=== PATIENT | male | born 1945 | race Caucasian/White ===

== ENCOUNTER → 2016-04-26 | Outpatient (CLI) | payer OTHER, BC ==
[2016-04-26 11:16] LABS: BASOPHILS # (AUTO) 0.06 10*3/UL; BASOPHILS % (AUTO) 0.8 % (0-1); EOSINOPHILS % (AUTO) 1.8 % (0-8); HEMATOCRIT 44.5 % (42.0-52.0); HEMOGLOBIN 15.5 g/dL (14.0-18.0); IMM GRAN % (AUTO) 0.7 % (0-5); IMM GRAN# (AUTO) 0.05 10*3/UL; LYMPHOCYTES # (AUTO) 1.87 10*3/uL; LYMPHOCYTES % (AUTO) 24.4 % (10-50); MEAN CORPUSCULAR HEMOGLOBIN 32.3 PG (27-31); MEAN CORPUSCULAR HGB CONC 34.8 g/dL (33-37); MEAN PLATELET VOLUME 10.2 FL (7.4-12.2); MONOCYTES # (AUTO) 0.56 10*3/UL (0.3-0.8); MONOCYTES % (AUTO) 7.3 % (5-15); NEUTROPHILS # (AUTO) 4.99 10*3/UL; RDW COEFFICIENT OF VARIATION 13.8 % (11.5-14.5); WHITE BLOOD COUNT 7.67 10^3/uL (4.8-10.8)
[2016-04-26 11:26] LABS: PLATELET MORPHOLOGY COMMENT NORMAL MORPHOLOGY (NORM)
[2016-04-26 11:38] LABS: BILIRUBIN,TOTAL 0.9 mg/dL (0.3-1.2); BUN/CREATININE RATIO 12.72 (6-20); CALCIUM 9.5 mg/dL (8.7-10.7); CREATININE 1.1 mg/dL (0.70-1.50); POTASSIUM 3.9 meq/L (3.8-5.2); TOTAL PROTEIN 7.3 g/dL (6.1-8.0)
[2016-04-26 17:37] LABS: LDL CHOLESTEROL,CALCULATED 73.8 mg/dL
== END ==
LOC: LAB 10:57
PROVIDERS: ATTEND Internal Medicine
DX: J45.909 Unspecified asthma, uncomplicated (principal); R06.09 Other forms of dyspnea; N41.1 Chronic prostatitis; R35.1 Nocturia; K21.9 Gastro-esophageal reflux disease without esophagitis; Z12.5 Encounter for screening for malignant neoplasm of prostate
CPT/HCPCS: 36415; 80053; 80061; 84443; 85025; 99214; G0103; G0463

== ENCOUNTER → 2016-10-05 | Outpatient (CLI) | payer OTHER, BC ==
--- NOTE | 2016-10-05 14:42 | EKG ---
[address] [address] Measurements Intervals [place] Rate: 50 P: 44 WA: 145 QRS: -12 QRSD: 85 T: 45 QT: 427 QTc: 400 Interpretive Statements SINUS BRADYCARDIA No previous ECG available for comparison Electronically Signed On 10-06-16 07:50:04 MDT by Rick García MD [email or web address]
[2016-10-05 15:38] LABS: HEMATOCRIT 42.3 % (42.0-52.0); HEMOGLOBIN 14.4 g/dL (14.0-18.0); RED BLOOD COUNT 4.53 10^6/uL (4.70-6.10)
[2016-10-05 15:39] LABS: BASOPHILS # (AUTO) 0.05 10*3/UL; BASOPHILS % (AUTO) 0.7 % (0-1); EOSINOPHILS # (AUTO) 0.18 10*3/UL; EOSINOPHILS % (AUTO) 2.5 % (0-8); LYMPHOCYTES # (AUTO) 1.32 10*3/uL; MEAN CORPUSCULAR HEMOGLOBIN 31.8 PG (27-31); MEAN CORPUSCULAR VOLUME 93.4 FL (80-90); MONOCYTES # (AUTO) 0.63 10*3/UL (0.3-0.8); MONOCYTES % (AUTO) 8.9 % (5-15); NEUTROPHILS # (AUTO) 4.84 10*3/UL; NEUTROPHILS % (AUTO) 68.5 % (50-80); PLATELET MORPHOLOGY COMMENT NORMAL MORPHOLOGY (NORM); RBC MORPHOLOGY COMMENT NORMAL MORPHOLOGY (NORM); WBC MORPHOLOGY COMMENT NORMAL MORPHOLOGY (NORM)
[2016-10-05 15:40] LABS: CALCIUM 8.7 mg/dL (8.7-10.7); SERUM ALBUMIN 3.8 g/dL (3.5-4.8)
--- NOTE | 2016-10-05 20:05 | DI ---
PA /LATERAL CHEST X-RAY, 10/05/2016 1:20 PM : Clinical History: Dyspnea on exertion. 02/07/2012 Previous Exam: . There is no acute soft tissue or bony abnormality. Heart size is normal. There is discoid atelectasis in the lingular segment. There is no acute infiltrate or effusion. Mediastinal structures are normal . There are no pulmonary nodules. Reading: Normal chest x-ray. Discoid atelectasis is present in the lingular segment.
== END ==
LOC: MOB LAB 14:30
PROVIDERS: ATTEND Internal Medicine
DX: R06.09 Other forms of dyspnea (principal); R07.9 Chest pain, unspecified; R53.83 Other fatigue; R05 Cough; R00.1 Bradycardia, unspecified; J44.9 Chronic obstructive pulmonary disease, unspecified
CPT/HCPCS: 36415; 71020; 80053; 83880; 84484; 85025; 93005; 93010; 99215; G0463